=== PATIENT | female | born 1965 | race Caucasian/White ===

== ENCOUNTER 2016-12-04 23:42 | Observation (INO) | payer BC ==
--- NOTE | ~2016-12-04 | HP ---
History And Physical [facility] [address] [place]. [address] NAME: ALBERTO SERNA : 69 STATUS : ADM Zia PAT#: [id number] AGE: 51 ADM/REG DATE : 12/04/16 MR#: [id number] REPORT SERV DATE: 12/05/16 DICTATED BY: TALIB GAMING DATE: 12/05/16 REPORT STATUS : Draft TRANSCRIBED BY: MODAretha DATE: 12/05/16 DATE OF ADMISSION: 12/04/2016 PRIMARY CARE PROVIDER: Dr. Patricia Garcia. CHIEF COMPLAINT: Chest heaviness. HISTORY OF PRESENT ILLNESS: A very pleasant 51-year-old white female with no known history of CAD, who states that she and her family returned from a short trip to [place] last evening, and on 12/04 around 1900, she experienced chest heaviness, mid chest to left chest that radiated towards her left arm. She states she carried a few groceries into the house. She describes the chest pain as a heaviness. She reports associated nausea. Denies shortness of breath, diaphoresis, dizziness, or belching. At its most intense, she rates the chest pain at 10/10. At time of interview in the CPOU, she rates it at 7/10, but it is reproducible on exam from mid chest to left axilla. She did take two Advil and two aspirin prior to coming to the hospital with no improvement in her symptoms. The patient denies any personal history of myocardial infarction, stroke, DVT, or pulmonary embolus. The patient denies any recent fever or chills, no palpitations, no syncopal episodes. Denies PND or orthopnea. PAST MEDICAL HISTORY: 1. Hypertension. 2. Reported borderline dyslipidemia. 3. Denies diabetes. 4. GERD. 5. Positive family history for early CAD. SURGICAL HISTORY: Hysterectomy. SOCIAL HISTORY: She is single with two children. 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 She does not have an exercise routine. Denies tobacco, alcohol, or illicits. FAMILY HISTORY: Sister with a heart attack in her 50s, remains alive at the age of 58. REVIEW OF SYSTEMS: A 14-point review of systems performed, significant for HPI. No other contributory diagnoses identified. ALLERGIES: SULFA. HOME MEDICINES: Lisinopril 10 mg daily and Protonix 40 mg daily. PHYSICAL EXAMINATION: VITAL SIGNS: Blood pressure 165/88, pulse 54, respirations 15, temperature 97.7, O2 saturation 95% on room air. Height 5 feet 8 inches, weight 205 pounds. BMI 31. History And Physical [address] [place]. [address] NAME: ALBERTO SERNA : [birth year] STATUS : ADM Zia PAT#: [id number] AGE: 51 ADM/REG DATE : 12/04/16 MR#: [id number] REPORT SERV DATE: 12/05/16 DICTATED BY: TALIB GAMING DATE: 12/05/16 REPORT STATUS : Draft TRANSCRIBED BY: ONELIA DATE: 12/05/16 GENERAL: Cooperative, in no apparent distress. HEENT: Pupils 2 mm, sclera nonicteric. Nares patent. Moist mucous membranes. No xanthelasma. NECK: Trachea midline, no thyromegaly. No JVD. No bruits. LYMPH: No cervical lymphadenopathy. No supraclavicular lymphadenopathy. RESPIRATORY: Unlabored respirations. Breath sounds clear bilaterally to posterior auscultation. No wheezes or rhonchi. Tender to palpation, mid chest to left axilla. CARDIOVASCULAR: Regular rate. No murmur, rub or gallop appreciated. Extremities without edema. Pulses 2+ bilaterally. Trace ankle edema. ABDOMEN: Soft, obese, nontender, nondistended, normal bowel sounds auscultated throughout. No organomegaly. SKIN: Warm, dry extremities. No pallor, or cyanosis. PSYCHIATRIC: Appropriate affect. Alert, oriented x3. LABORATORY DATA: Troponin less than 0.02 x3. Potassium 3.8, BUN 15, creatinine 1.07, glucose 94, and magnesium 2.5. WBC 8.7, hemoglobin 13.4, hematocrit 39.5, platelet count 230,000. EKG; sinus bradycardia. ASSESSMENT AND PLAN: 1. Chest pain, reproducible on exam. The patient has been observed in the CPOU overnight to rule out myocardial infarction with serial enzymes and serial EKGs. She will be held n.p.o. for exercise treadmill on 12/06. Home if low risk study. We will also provide Toradol 30 mg IV x1 for probable musculoskeletal pain, which is reproducible on exam. The patient will be asked to follow up with her PCP in one to two weeks with all studies being sent to that office. If anything suggestive of ischemia, Cardiology referral will be initiated. 2. Hypertension. Monitor blood pressure. Continue home medications. 3. Gastroesophageal reflux disease. Protonix per home med schedule and Roxie p.rjuliocesar PRATHER/ONELIA JUDD Vang, RAIL FILLER-BC / [id number] CC: JUDD Vang, RAIL FILLER-BC
[2016-12-05 00:18] LABS: BASOPHILS 0.3 %; BASOPHILS ABSOLUTE 0.03 10/3/uL (0.0-0.16); EOSINOPHILS 2.7 %; EOSINOPHILS ABSOLUTE 0.23 10/3/uL (0.0-0.53); HEMATOCRIT 39.5 % (36.0-48.0); HEMOGLOBIN 13.4 g/dL (12.0-16.0); IMMATURE GRANULOCYTES 0.1 %; IMMATURE GRANULOCYTES ABSOLUTE 0.01 10/3/uL (0.0-0.11); LYMPHOCYTES 45.5 %; LYMPHOCYTES ABSOLUTE 3.94 10/3/uL (0.67-4.30); MEAN CORPUS HGB CONC 33.9 g/dL (32.0-36.0); MEAN CORPUSCULAR HEMOGLOB 31.4 pg (26.0-34.0); MEAN PLATELET VOLUME 10.4 fL (9.2-13.0); MONOCYTES 5.4 %; MONOCYTES ABSOLUTE 0.47 10/3/uL (0.21-1.20); NEUTROPHILS ABSOLUTE 3.97 10/3/uL (2.02-8.40); PLATELET COUNT 230 10/3/uL (150-400); RBC DISTRIBUTION WIDTH 12.5 % (12.0-16.0); RED CELL COUNT 4.27 10/6/uL (4.0-5.6); WHITE BLOOD CELLS 8.7 10/3/uL (4.5-10.5)
[2016-12-05 00:21] LABS: MANUAL DIFF NO %; MEAN CORPUSCULAR VOLUME 92.5 fL (80-100)
[2016-12-05 00:38] LABS: INTERNATIONAL NORMAL RATI 0.9 UNITS (-); PROTIME (NOT ORD) 12.5 SEC (12.0-14.5)
[2016-12-05 00:51] LABS: BUN (BLOOD UREA NITROGEN) 15 MG/DL (6-23); CALCIUM, SERUM 9.2 MG/DL (8.5-10.4); CHEST PAIN PROFILE TAT 0 Hrs 28 Mins; CHLORIDE, SERUM 111 MMOL/L (96-112); CO2 (CARBON DIOXIDE) 30 MMOL/L (24-34); CREATININE 1.07 MG/DL (0.55-1.02); GFR AFRICAN AMERICAN 71 ML/MIN (>=60); GFR NON AFRICAN AMERICAN 61 ML/MIN (>=60); GLUCOSE, SERUM 94 MG/DL (60-99); POTASSIUM, SERUM 3.8 MMOL/L (3.5-5.3); SODIUM, SERUM 146 MMOL/L (135-148); TROPONIN I <0.02 NG/ML (<0.05)
[2016-12-05] MEDS ORDERED: PROTONIX PO (01:35)
[2016-12-05] MEDS ORDERED: PRIN10 PO (01:36)
[2016-12-06 11:44] LABS: BASOPHILS 0.3 %; BASOPHILS ABSOLUTE 0.02 10/3/uL (0.0-0.16); EOSINOPHILS 1.9 %; EOSINOPHILS ABSOLUTE 0.15 10/3/uL (0.0-0.53); HEMOGLOBIN 13.8 g/dL (12.0-16.0); IMMATURE GRANULOCYTES 0.3 %; IMMATURE GRANULOCYTES ABSOLUTE 0.02 10/3/uL (0.0-0.11); LYMPHOCYTES 32.9 %; LYMPHOCYTES ABSOLUTE 2.62 10/3/uL (0.67-4.30); MEAN CORPUS HGB CONC 34.5 g/dL (32.0-36.0); MEAN CORPUSCULAR HEMOGLOB 31.4 pg (26.0-34.0); MEAN CORPUSCULAR VOLUME 90.9 fL (80-100); MEAN PLATELET VOLUME 10.4 fL (9.2-13.0); MONOCYTES 4.8 %; MONOCYTES ABSOLUTE 0.38 10/3/uL (0.21-1.20); NEUTROPHILS 59.8 %; NEUTROPHILS ABSOLUTE 4.77 10/3/uL (2.02-8.40); PLATELET COUNT 225 10/3/uL (150-400); RBC DISTRIBUTION WIDTH 12.2 % (12.0-16.0)
[2016-12-06 11:46] LABS: MANUAL DIFF NO %
[2016-12-06 11:50] LABS: PROTIME (NOT ORD) 13.3 SEC (12.0-14.5)
[2016-12-06 11:58] LABS: BUN (BLOOD UREA NITROGEN) 14 MG/DL (6-23); CHLORIDE, SERUM 110 MMOL/L (96-112); CHOL/HDL RATIO(NOT ORDER) 3.9 (0-5); CHOLESTEROL 178 MG/DL (< 200); CO2 (CARBON DIOXIDE) 24 MMOL/L (24-34); CREATININE 0.99 MG/DL (0.55-1.02); GFR AFRICAN AMERICAN 78 ML/MIN (>=60); GFR NON AFRICAN AMERICAN 67 ML/MIN (>=60); GLUCOSE, SERUM 92 MG/DL (60-99); HDL CHOLESTEROL 46 MG/DL (> 49); LDL CHOLESTEROL 103 MG/DL (< 130); NON-HDL CHOLESTEROL 132 MG/DL (< 160); POTASSIUM, SERUM 4.2 MMOL/L (3.5-5.3); SODIUM, SERUM 143 MMOL/L (135-148); TRIGLYCERIDE 147 MG/DL (< 150)
== END 2016-12-06 23:13 | disposition home or self-care (01) ==
LOC: ER 23:42 → CDU1 23:59
PROVIDERS: Emergency Medicine; Nurse Practitioner
DX: I20.0 Unstable angina (principal); I10 Essential (primary) hypertension; K21.9 Gastro-esophageal reflux disease without esophagitis; Z88.2 Allergy status to sulfonamides; Z90.710 Acquired absence of both cervix and uterus
CPT/HCPCS: 71010; 71275; 80048; 80061; 83735; 84484; 85025; 85379; 85610; 85730; 93005; 93017; 93458; 96374; 96375; 96376; 99152; 99285; A9270-GY; C1769; C1887; C1894; C8928; G0378; J0360; J1170; J1885; J2250; J3010; Q9957; Q9967